=== PATIENT | female | born 1935 | race Caucasian/White ===

== ENCOUNTER → 2017-01-26 | Outpatient (CLI) | payer OTHER, MEDICARE ==
[~2017-01-26] MED LIST: ALPR-411 PO; CALCTAB5 PO; ERGO500037 PO; POLY1POW2 PO; SENN-61 PO; SIMV20TA2 PO
[2017-01-26 17:59] LABS: HEMATOCRIT 36.6 % (37-47); MEAN CELL VOLUME 98.4 fL (80-100); MEAN CORPUSCULAR HEMOGLOBIN 30.6 pg (25-34); MEAN CORPUSCULAR HGB CONC 31.1 g/dl (32-36); MEAN PLATELET VOLUME 11.3 fL (7.4-10.4); PLATELET COUNT 252 K/uL (130-400); RED BLOOD COUNT 3.72 M/uL (4.2-5.4); WHITE BLOOD COUNT 5.71 K/uL (4.8-10.8)
== END | disposition home or self-care (01) ==
LOC: C.LABMFLN 10:13
PROVIDERS: ATTEND Family Medicine
DX: Z87.898 Personal history of other specified conditions (principal); D64.9 Anemia, unspecified